=== PATIENT | male | born 1945 | race Caucasian/White ===

== ENCOUNTER 2017-01-10 12:27 | Emergency (ER) | payer MEDICARE, MEDICAID ==
[~2017-01-10] VITALS: Ht 175.3 cm; Wt 75.0 kg
[~2017-01-10 12:27] MED LIST: ALBU1AER INH; ALL220TA PO; ASPI325T PO; BENA40TA OR; PRED5TAB PO; SIMV10TA OR; SPIRCAP INH; SYMB160A INH; VITA-13 PO
[2017-01-10 12:35] VITALS: BP 159/94; PULSE 122; RESP 22; TEMP 98.7; O2SAT 95
[2017-01-10] MEDS ORDERED: SODIUM CHLORIDE 0.9% FLUSH 10 ML FLUSH IV FLUSH PRN (13:15)
[2017-01-10] MEDS ORDERED: methylPREDNISolone SOD SUCC 125 MG/2 ML VIAL IVP ONE (13:15)
[2017-01-10] MEDS ORDERED: diphenhydrAMINE HCL 50 MG/ML VIAL IVP ONE (13:15)
[2017-01-10] MEDS ORDERED: FAMOTIDINE 20 MG/2 ML VIAL IV PUSH ONE (13:15)
[2017-01-10] MEDS: RESP: ALBUTEROL 2.5 MG/IPRATROPIUM 0.5 MG NEB (SCH) INH ×2 (13:21→14:56)
[2017-01-10 13:25] VITALS: O2SAT 97
[2017-01-10] MEDS ORDERED: XOLA150S SQ (13:31)
[2017-01-10] MEDS ORDERED: ASPI325T PO (13:31)
[2017-01-10] MEDS ORDERED: ALBU1.25 NEB (13:31)
[2017-01-10] MEDS ORDERED: MONT10TA2 PO (13:31)
[2017-01-10] MEDS ORDERED: SPIRCAP INH (13:31)
[2017-01-10] MEDS ORDERED: SIMV10TA PO (13:31)
[2017-01-10] MEDS ORDERED: SYMB80AE INH (13:31)
[2017-01-10] MEDS ORDERED: BENA40TA PO (13:31)
[2017-01-10] MEDS ORDERED: VITA100036 PO (13:31)
[2017-01-10 13:33] LABS: AUTOMATED NEUTROPHIL # 5.1 TH/MM3 (1.8-7.7); BASOPHIL % 0.4 % (0.0-2.0); EOSINOPHIL # 0.1 TH/MM3 (0-0.4); EOSINOPHIL % 1.9 % (0.0-4.0); HEMATOCRIT 44.9 % (39.0-51.0); HEMO FLAGS DIFF FINAL; LYMPH % 23.9 % (9.0-44.0); LYMPHOCYTE # 1.9 TH/MM3 (1.0-4.8); MEAN CELL VOLUME 87.6 FL (80.0-100.0); MEAN CORPUSCULAR HEMOGLOBIN 29.5 PG (27.0-34.0); MEAN CORPUSCULAR HGB CONC 33.6 % (32.0-36.0); MONO % 10.2 % (0.0-8.0); NEUT % 63.6 % (16.0-70.0); PLATELET COUNT 218 TH/MM3 (150-450); RED BLOOD COUNT 5.12 MIL/MM3 (4.50-5.90); RED CELL DISTRIBUTION WIDTH 14.3 % (11.6-17.2); WHITE BLOOD COUNT 7.9 TH/MM3 (4.0-11.0)
--- NOTE | 2017-01-10 13:34 | PD ---
HPI Chief Complaint: shortness of breath Time Seen by Provider: 13:10 Travel History International Travel<30 days: No Contact w/Intl Traveler<30days: No Traveled to known affect area: No History of Present Illness HPI 71-year-old male with history of COPD, previous TIA, presents to the ER today because he states that he was given a new medication,Xolair, which she started on Wednesday, felt better for the past few days but then started having worsening in shortness of breath, chest tightness, coughing, headaches. He states that he thinks he is having a reaction to the medication. He states his first time he has been giving the medication. He denies any fevers, vomiting, abdominal pains, or other symptoms. Modifying Factors: None Associated Signs & Symptoms: Increased shortness of breath, chest discomfort, headaches Risk Factors: Recent new medication PFSH Past Medical History Cancer: No Diabetes: No Hepatitis: No Hiatal Hernia: No Thyroid Disease: No Social History Tobacco Use: No Allergies-Medications (Allergen,Severity, Reaction): Coded Allergies: acetaminophen (Unverified Allergy, Intermediate, Itching, 01/10/17) hydrocodone (Unverified Allergy, Intermediate, Itching, 01/10/17) oxycodone (Verified Allergy, Unknown, ITCHING, 01/10/17) Reported Meds & Prescriptions Reported Meds & Active Scripts Active Reported Vitamin D3 (Cholecalciferol) 1,000 Unit Cap 1,000 Units PO DAILY Aspirin 325 Mg Tab 325 Mg PO DAILY Benazepril (Benazepril HCl) 40 Mg Tab 40 Mg PO DAILY Simvastatin 10 Mg Tab 10 Mg PO DAILY Singulair (Montelukast Sodium) 10 Mg Tab 10 Mg PO HS Albuterol Neb (Albuterol Sulfate) 1.25 Mg/3 Ml Neb 1.25 Mg NEB Q4HR NEB PRN Symbicort Inh (Budesonide/Formoterol Fumarate) 80-4.5 Mcg/Act Aero 1 Puff INH Q12HR Xolair Inj (Omalizumab) 150 Mg Vial 150 Mg SQ Q28D Spiriva Handihaler (Tiotropium Inh) 18 Mcg Cap 18 Mcg INH DAILY 1 capsule = 18 mcg Review of Systems Except as stated in HPI: all other systems reviewed are Neg Physical Exam Narrative GENERAL: Well-developed elderly white male patient currently and moderate distress. Appears anxious. Awake and oriented 3. SKIN: Focused skin assessment warm/dry. HEAD: Atraumatic. Normocephalic. EYES: Pupils equal and round. No scleral icterus. No injection or drainage. ENT: No nasal bleeding or discharge. Mucous membranes pink and moist. NECK: Trachea midline. Positive JVD. CARDIOVASCULAR: Regular rate and rhythm. No murmur appreciated. RESPIRATORY: No accessory muscle use. Decreased breath sounds to auscultation throughout with mild wheezing intermittently. Breath sounds equal bilaterally. Right basilar crackles. GASTROINTESTINAL: Abdomen soft, non-tender, nondistended. Hepatic and splenic margins not palpable. MUSCULOSKELETAL: No obvious deformities. No clubbing. No cyanosis. No edema. NEUROLOGICAL: Awake and alert. No obvious cranial nerve deficits. Motor grossly within normal limits. Normal speech. PSYCHIATRIC: Appropriate mood and affect; insight and judgment normal. Data Data Last Documented VS Vital Signs Date Time Temp Pulse Resp B/P (MAP) Pulse Ox O2 Delivery O2 Flow Rate FiO2 01/10/17 14:02 97.7 109 24 157/86 (109) 93 Room Air 01/10/17 13:25 21 Orders Orders Complete Blood Count With Diff (01/10/17 13:10) Comprehensive Metabolic Panel (01/10/17 13:10) Ecg Monitoring (01/10/17 13:10) Iv Access Insert/Monitor (01/10/17 13:10) Oximetry (01/10/17 13:10) Diphenhydramine Inj (Benadryl Inj) (01/10/17 13:15) Methylprednisolone So Succ Inj (Solumedr (01/10/17 13:15) Famotidine Inj (Pepcid Inj) (01/10/17 13:15) Albuterol-Ipratropium Neb (Duoneb Neb) (01/10/17 13:15) Sodium Chloride 0.9% Flush (Ns Flush) (01/10/17 13:15) B-Type Natriuretic Peptide (01/10/17 13:59) Chest, Single Ap (01/10/17 13:59) Albuterol-Ipratropium Neb (Duoneb Neb) (01/10/17 15:00) Electrocardiogram (01/10/17 12:43) Labs Laboratory Tests Test 01/10/17 12:55 White Blood Count 7.9 TH/MM3 Red Blood Count 5.12 MIL/MM3 Hemoglobin 15.1 GM/DL Hematocrit 44.9 % Mean Corpuscular Volume 87.6 FL Mean Corpuscular Hemoglobin 29.5 PG Mean Corpuscular Hemoglobin Concent 33.6 % Red Cell Distribution Width 14.3 % Platelet Count 218 TH/MM3 Mean Platelet Volume 7.0 FL Neutrophils (%) (Auto) 63.6 % Lymphocytes (%) (Auto) 23.9 % Monocytes (%) (Auto) 10.2 % Eosinophils (%) (Auto) 1.9 % Basophils (%) (Auto) 0.4 % Neutrophils # (Auto) 5.1 TH/MM3 Lymphocytes # (Auto) 1.9 TH/MM3 Monocytes # (Auto) 0.8 TH/MM3 Eosinophils # (Auto) 0.1 TH/MM3 Basophils # (Auto) 0.0 TH/MM3 CBC Comment DIFF FINAL Differential Comment Blood Urea Nitrogen 15 MG/DL Creatinine 1.00 MG/DL Random Glucose 99 MG/DL Total Protein 7.5 GM/DL Albumin 3.8 GM/DL Calcium Level 9.2 MG/DL Alkaline Phosphatase 54 U/L Aspartate Amino Transf (AST/SGOT) 18 U/L Alanine Aminotransferase (ALT/SGPT) 24 U/L Total Bilirubin 0.5 MG/DL Sodium Level 138 MEQ/L Potassium Level 3.6 MEQ/L Chloride Level 103 MEQ/L Carbon Dioxide Level 25.9 MEQ/L Anion Gap 9 MEQ/L Estimat Glomerular Filtration Rate 73 ML/MIN B-Type Natriuretic Peptide 8 PG/ML MDM Medical Decision Making Medical Screen Exam Complete: Yes Emergency Medical Condition: Yes Medical Record Reviewed: Yes Interpretation(s) Laboratory Tests Test 01/10/17 12:55 Monocytes (%) (Auto) 10.2 % (0.0-8.0) Estimat Glomerular Filtration Rate 73 ML/MIN (>89) Differential Diagnosis Shortness of breath, anxiety, chest discomfort : worsening COPD versus pneumonia versus CHF versus allergic reaction versus medication side effect Narrative Course Chest x-ray did not show any signs of acute pulmonary processes. He had normal BNP and lab work. He was given Solu-Medrol, nebulizers, Benadryl in the ER. He did not have any signs of obvious angioedema on exam. On reevaluation at 3: 00, patient was still having some wheezing although he reports feeling better with the treatment. Another set of DuoNeb's were given. On a additional reevaluation at 3:46 PM, he is feeling much better and states that he wants to go home. At this point, I suspect that he may have an underlying COPD exacerbation rather than a reaction to the new medication. However, patient has an EpiPen at home as precaution because of possible reactions with the new medication. He is not supposed to get the new medication until another month. At this point, he appears to be doing well my plan would be to release him with close follow-up to primary care doctor. We will give him further treatment for COPD exacerbation. Return for any worsening in symptoms as needed. The plan has been discussed with him and he states understanding. In addition, have talked him regarding when to use the EpiPen which he should care with him at all times. Diagnosis Primary Impression: COPD exacerbation Med/Other Pt SpecificInfo: Prescription(s) given Scripts Epinephrine Inj (Epipen 2-Willem Inj) 0.3 Mg/0.3 Ml Pfpen 0.3 MG IM ONCE Y for ALLERGIC REACTION, #1 PACK 0 Refills Prov: Rafy Vásquez MD 01/10/17 Albuterol 6.7 GM Inh (Proventil Hfa 6.7 GM Inh) 90 Mcg/Act Aer 2 PUFF INH Q4-6H Y for SHORTNESS OF BREATH, #1 INHALER 0 Refills Prov: Rafy Vásquez MD 01/10/17 Methylprednisolone Dosepak (Medrol Dosepak) 4 Mg Dspk 4 MG PO DIRECTED, #1 DSPK 0 Refills Per Pharmacist direction Prov: Rafy Vásquez MD 01/10/17 Disposition: 01 DISCHARGE HOME Condition: Stable Rafy Vásquez MD Jan 10, 2017 13:34
[2017-01-10 13:48] LABS: CHLORIDE 103 MEQ/L (98-107); POTASSIUM 3.6 MEQ/L (3.5-5.1); SODIUM (NA) 138 MEQ/L (136-145)
[2017-01-10 13:52] LABS: ANION GAP 9 MEQ/L (5-15); BICARBONATE 25.9 MEQ/L (21.0-32.0); BLOOD UREA NITROGEN 15 MG/DL (7-18)
[2017-01-10 13:55] LABS: ALT (GPT) 24 U/L (12-78); AST (GOT) 18 U/L (15-37); GLOMERULAR FILTRATION RATE 73 ML/MIN (>89)
[2017-01-10 13:57] LABS: ALKALINE PHOSPHATASE 54 U/L (45-117); TOTAL BILIRUBIN ADULT 0.5 MG/DL (0.2-1.0)
[2017-01-10 14:02] VITALS: BP 157/86; PULSE 109; RESP 24; TEMP 97.7; O2SAT 93
--- NOTE | 2017-01-10 14:37 | RADRPT ---
EXAM DATE/TIME: 01/10/2017 14:29 [facility] COMPARISON: No previous studies available for comparison. INDICATIONS : Short of breath. MEDICAL HISTORY : None. SURGICAL HISTORY : None. ENCOUNTER: Initial ACUITY: 1 day PAIN SCORE: 7/10 LOCATION: Bilateral chest FINDINGS: A single view of the chest demonstrates the lungs to be symmetrically aerated without evidence of mas s, infiltrate or effusion. The cardiomediastinal contours are unremarkable. Tracheal shift to the r ight. Osseous structures are intact. CONCLUSION: Tracheal shift to the right likely enlarged thyroid. No acute cardiopulmonary disease. Nayan Hopkins MD on January 10, 2017 at 14:34 Board Certified Radiologist. This report was verified electronically.
[2017-01-10] MEDS ORDERED: MEDR4PAK PO (15:49)
[2017-01-10] MEDS ORDERED: EPIP0.3I IM (15:49)
[2017-01-10] MEDS ORDERED: ALBU6.7H INH (15:49)
[2017-01-10 15:50] VITALS: BP 157/75; PULSE 117; RESP 22; TEMP 97.8; O2SAT 95
--- NOTE | 2017-01-10 20:28 | EKG ---
Date Performed: 01/10/2017 Time Performed: 12:43:52 PTAGE: 71 years EKG: SINUS TACHYCARDIA ABNORMAL RHYTHM ECG NO PREVIOUS TRACING DOCTOR: Jagdish Gonzales Interpretating Date/Time 01/10/2017 20:26:50
== END 2017-01-10 16:03 | disposition home or self-care (01) ==
LOC: PHED 12:27
DX: J44.1 Chronic obstructive pulmonary disease with (acute) exacerbation (principal); Z86.73 Personal history of transient ischemic attack (TIA), and cerebral infarction without residual deficits
CPT/HCPCS: 71010; 80053; 83880; 85025; 93005; 94640; 94664; 96374; 96375; 99285; J1200; J2930

== ENCOUNTER 2017-04-14 11:23 | Inpatient (IN) | payer MEDICARE, MEDICAID ==
[2017-04-14] VITALS (9 sets, daily range): BP systolic 116–163; BP diastolic 76–100; PULSE 82–240; RESP 16–20; TEMP 96.3–97.9; O2SAT 94–97
[~2017-04-14 11:23] MED LIST changes: +ALBU1.25 NEB; -ALBU1AER INH; +ALBU6.7H INH; -ALL220TA PO; +ASPI-183 PO; -ASPI325T PO; -BENA40TA OR; +BENA40TA PO; +CHOL10008 PO; +EPIP0.3I IM; +MEDR4PAK PO; +MONT10TA2 PO; -PRED5TAB PO; -SIMV10TA OR; +SIMV10TA PO; -SYMB160A INH; +SYMB80AE INH; -VITA-13 PO; +XOLA150S SQ
[2017-04-14] MEDS ORDERED: ADENOSINE IV SOLN 3 MG/ML 2 ML VIAL ONE (11:35)
--- NOTE | 2017-04-14 11:59 | PD ---
HPI Chief Complaint: Cardiac Complaint Time Seen by Provider: 11:51 Travel History International Travel<30 days: No Contact w/Intl Traveler<30days: No History of Present Illness HPI 71yo M with PMH of COPD, PE on eliquis presents to the ED because his heart rate was in the 250s. Said he checks his heart rate every day. Pt was in SVT in the 250s with narrow regular complexes. Has a remote history of WPW syndrome. Pt was just discharged from [facility] last Wednesday because he was having trouble swallowing. Pt said he cough when he was drinking today and thinks he may have aspirated. Pt has sob but that is constant and not new. Has mild midsternal chest pain as well. Nonradiating. Denies any fever, nausea, vomiting, abdominal pain, focal weakness or numbness. Said he saw gunsmith apprentice Dr. Denny once. PFSH Past Medical History Hx Anticoagulant Therapy: Yes (ASA) Asthma: Yes Cancer: No Cardiovascular Problems: Yes (WPW SYSD.) High Cholesterol: Yes COPD: Yes Diabetes: No Diminished Hearing: No Hepatitis: No Hiatal Hernia: No Hypertension: Yes Respiratory: Yes (EMPHYSEMA) Immunizations Current: Yes Thyroid Disease: No Past Surgical History Other Surgery: Yes (SPINE) Social History Alcohol Use: Yes (2 WEEK) Tobacco Use: No Substance Use: No Allergies-Medications (Allergen,Severity, Reaction): Coded Allergies: acetaminophen (Unverified Allergy, Intermediate, Itching, 01/10/17) hydrocodone (Unverified Allergy, Intermediate, Itching, 01/10/17) oxycodone (Verified Allergy, Unknown, ITCHING, 01/10/17) Reported Meds & Prescriptions Reported Meds & Active Scripts Active Epipen 2-Willem Inj (Epinephrine) 0.3 Mg/0.3 Ml Pfpen 0.3 Mg IM ONCE PRN Proventil Hfa 6.7 GM Inh (Albuterol Sulfate) 90 Mcg/Act Aer 2 Puff INH Q4-6H PRN Reported [place] (Hydrocodone-Acetaminophen) 5 Mg-325 Mg Tab 1 Tab PO Q4H PRN Eliquis (Apixaban) 5 Mg Tab 5 Mg PO BID Diphenhydramine (Diphenhydramine HCl) 25 Mg Cap 25 Mg PO ONCE Aspirin 81 Mg Chew 162 Mg CHEW DAILY Vitamin D3 (Cholecalciferol) 1,000 Unit Cap 1,000 Units PO DAILY Simvastatin 10 Mg Tab 10 Mg PO DAILY Albuterol Neb (Albuterol Sulfate) 1.25 Mg/3 Ml Neb 1.25 Mg NEB Q4HR NEB PRN Symbicort Inh (Budesonide/Formoterol Fumarate) 80-4.5 Mcg/Act Aero 1 Puff INH Q12HR Xolair Inj (Omalizumab) 150 Mg Vial 150 Mg SQ Q28D Spiriva Handihaler (Tiotropium Inh) 18 Mcg Cap 18 Mcg INH DAILY 1 capsule = 18 mcg Review of Systems Except as stated in HPI: all other systems reviewed are Neg Physical Exam Narrative GENERAL: 71yo M in moderate distress. SKIN: Focused skin assessment warm/dry. HEAD: Atraumatic. Normocephalic. EYES: Pupils equal and round. No scleral icterus. No injection or drainage. ENT: No nasal bleeding or discharge. Mucous membranes pink and moist. NECK: Trachea midline. No JVD. CARDIOVASCULAR: Regular rhythm in the 250s. Narrow complex. RESPIRATORY: No accessory muscle use. Clear to auscultation. Breath sounds equal bilaterally. GASTROINTESTINAL: Abdomen soft, NT/ND. No rebound tenderness or guarding. MUSCULOSKELETAL: No obvious deformities. No clubbing. No cyanosis. No edema. NEUROLOGICAL: Awake and alert. No obvious cranial nerve deficits. Motor grossly within normal limits. Normal speech. PSYCHIATRIC: Appropriate mood and affect; insight and judgment normal. Data Data Last Documented VS Vital Signs Date Time Temp Pulse Resp B/P (MAP) Pulse Ox O2 Delivery O2 Flow Rate FiO2 04/14/17 12:34 112 16 116/92 (100) 96 04/14/17 11:35 97.9 Orders Orders Adenosine Inj (Adenocard Inj) (04/14/17 11:35) Adenosine Inj (Adenocard Inj) (04/14/17 12:00) Complete Blood Count With Diff (04/14/17 11:51) Basic Metabolic Panel (Bmp) (04/14/17 11:51) Prothrombin Time / Inr (Pt) (04/14/17 11:51) Act Partial Throm Time (Ptt) (04/14/17 11:51) Chest, Single Ap (04/14/17 ) Troponin I (04/14/17 11:51) Sodium Chlor 0.9% 1000 Ml Inj (Ns 1000 M (04/14/17 12:00) Hepatic Functional Panel (04/14/17 11:51) Admit Order (Ed Use Only) (04/14/17 12:59) Labs Laboratory Tests Test 04/14/17 11:38 White Blood Count 10.7 TH/MM3 Red Blood Count 4.79 MIL/MM3 Hemoglobin 13.8 GM/DL Hematocrit 42.8 % Mean Corpuscular Volume 89.4 FL Mean Corpuscular Hemoglobin 28.8 PG Mean Corpuscular Hemoglobin Concent 32.3 % Red Cell Distribution Width 14.6 % Platelet Count 605 TH/MM3 Mean Platelet Volume 7.4 FL Neutrophils (%) (Auto) 66.5 % Lymphocytes (%) (Auto) 21.1 % Monocytes (%) (Auto) 8.9 % Eosinophils (%) (Auto) 2.1 % Basophils (%) (Auto) 1.4 % Neutrophils # (Auto) 7.3 TH/MM3 Lymphocytes # (Auto) 2.2 TH/MM3 Monocytes # (Auto) 0.9 TH/MM3 Eosinophils # (Auto) 0.2 TH/MM3 Basophils # (Auto) 0.1 TH/MM3 CBC Comment DIFF FINAL Differential Comment Prothrombin Time 11.6 SEC Prothromb Time International Ratio 1.0 RATIO Activated Partial Thromboplast Time 28.7 SEC Blood Urea Nitrogen 21 MG/DL Creatinine 1.10 MG/DL Random Glucose 117 MG/DL Total Protein 7.8 GM/DL Albumin 3.8 GM/DL Calcium Level 9.6 MG/DL Alkaline Phosphatase 189 U/L Aspartate Amino Transf (AST/SGOT) 30 U/L Alanine Aminotransferase (ALT/SGPT) 37 U/L Total Bilirubin 0.3 MG/DL Direct Bilirubin 0.1 MG/DL Sodium Level 139 MEQ/L Potassium Level 3.7 MEQ/L Chloride Level 104 MEQ/L Carbon Dioxide Level 23.2 MEQ/L Anion Gap 12 MEQ/L Estimat Glomerular Filtration Rate 66 ML/MIN Indirect Bilirubin 0.2 MG/DL Troponin I LESS THAN 0.02 NG/ML [facility] Medical Decision Making Medical Screen Exam Complete: Yes Emergency Medical Condition: Yes Interpretation(s) EKG: SVT 240. Narrow complex. Regular. Repeat EKG: Sinus tachycardia at 136bpm. Normal axis. PVC. Differential Diagnosis SVT vs. aflutter vs. dehydration Narrative Course 71yo M here with HR in the 240s. The rhythm was regular and QRS was narrow. Even if pt had history of WPW, given the narrow complex, felt that it would be orthodromic atrioventricular reciprocating tachycardia and can safely give adenosine. Pt was given adenosine 6mg IV and converted to sinus tachycardia in the 120s then 110s. Pt receiving NS IVF. Pt had mild midsternal chest pain so cardiac work up initiated. Labs reviewed, no leukocytosis. Platelet count is elevated at 605 which is new. BUN mildly elevated at 21. Alk phos is also elevated at 189. Pt has no abdominal pain now. Troponin negative. CXR negative. Discussed with Dr. Philippe and accepted to his service. Records have been requested from [facility] and pending. Routine cardiology consult placed for Dr. Denny. Pt reevaluated at bedside and HR is now to 113bpm after 1 liter of NS IVF. Pt said he still feels dehydrated and wants more IVF. 500cc NS IVF ordered. Discussed with Dr. Philippe and accepted to his service. Cardiology consult placed and pt was seen by Dr. Corona in the ED. Critical Care Narrative Aggregate critical care time was 40 minutes. Time to perform other separately billable procedures was not included in the critical care time. My time did not include minutes spent treating any other patients simultaneously or on activities that did not directly contribute to the patient's treatment. The services I provided to this patient were to treat and/or prevent clinically significant deterioration that could result in: cardiovascular collapse or . I provided critical care services requiring my management, as noted below: Chart data review, documentation time, medication orders and management, vital sign assessments/reviewing monitor data, ordering and reviewing lab tests, ordering and interpreting/reviewing x-rays and diagnostic studies, care of the patient and discussion of the patient with the admitting physicians. Diagnosis Primary Impression: SVT (supraventricular tachycardia) Admitting Information Admitting Physician Requests: Admit Karolina Macario DO Apr 14, 2017 11:59
[2017-04-14] MEDS ORDERED: ADENOSINE IV SOLN 3 MG/ML 2 ML VIAL IV PUSH ONE (12:00)
[2017-04-14] MEDS ORDERED: SODIUM CHLOR 0.9% 1000 ML INJ 1,000 ML IV ONE (12:00)
[2017-04-14 12:04] LABS: AUTOMATED NEUTROPHIL # 7.3 TH/MM3 (1.8-7.7); BASOPHIL # 0.1 TH/MM3 (0-0.2); BASOPHIL % 1.4 % (0.0-2.0); EOSINOPHIL # 0.2 TH/MM3 (0-0.4); EOSINOPHIL % 2.1 % (0.0-4.0); HEMATOCRIT 42.8 % (39.0-51.0); HEMO FLAGS DIFF FINAL; LYMPH % 21.1 % (9.0-44.0); LYMPHOCYTE # 2.2 TH/MM3 (1.0-4.8); MEAN CELL VOLUME 89.4 FL (80.0-100.0); MEAN CORPUSCULAR HEMOGLOBIN 28.8 PG (27.0-34.0); MEAN CORPUSCULAR HGB CONC 32.3 % (32.0-36.0); MONO % 8.9 % (0.0-8.0); NEUT % 66.5 % (16.0-70.0); PLATELET COUNT 605 TH/MM3 (150-450); RED BLOOD COUNT 4.79 MIL/MM3 (4.50-5.90); RED CELL DISTRIBUTION WIDTH 14.6 % (11.6-17.2); WHITE BLOOD COUNT 10.7 TH/MM3 (4.0-11.0)
[2017-04-14 12:13] LABS: CHLORIDE 104 MEQ/L (98-107); POTASSIUM 3.7 MEQ/L (3.5-5.1); SODIUM (NA) 139 MEQ/L (136-145)
[2017-04-14] MEDS ORDERED: DIPH25CA PO (12:14)
[2017-04-14] MEDS ORDERED: ASPI-516 CHEW (12:14)
[2017-04-14] MEDS ORDERED: NORC5TAB PO (12:14)
[2017-04-14] MEDS ORDERED: APIX5TAB PO (12:14)
[2017-04-14 12:17] LABS: ANION GAP 12 MEQ/L (5-15); APTT (PATIENT) 28.7 SEC (24.3-30.1); BICARBONATE 23.2 MEQ/L (21.0-32.0); BLOOD UREA NITROGEN 21 MG/DL (7-18); PROTHROMBIN TIME - PATIENT 11.6 SEC (9.8-11.6)
--- NOTE | 2017-04-14 12:19 | RADRPT ---
EXAM DATE/TIME: 04/14/2017 12:01 [facility] COMPARISON: CHEST SINGLE AP, January 10, 2017, 14:29. INDICATIONS : Chest pain and short of breath. MEDICAL HISTORY : Cardiovascular disease. Emphysema. Hypertension. asthma, copd, PE SURGICAL HISTORY : goiter surgery ENCOUNTER: Initial ACUITY: 1 day PAIN SCORE: 5/10 LOCATION: Bilateral chest FINDINGS: A single view of the chest demonstrates the lungs to be symmetrically aerated without evidence of mas s, infiltrate or effusion. The cardiomediastinal contours are unremarkable. Osseous structures are intact. CONCLUSION: Normal examination. 4 intact median sternotomy wires. Torey Rosas MD on April 14, 2017 at 12:17 Board Certified Radiologist. This report was verified electronically.
[2017-04-14 12:20] LABS: ALT (GPT) 37 U/L (12-78); AST (GOT) 30 U/L (15-37); GLOMERULAR FILTRATION RATE 66 ML/MIN (>89)
[2017-04-14 12:21] LABS: INDIRECT BILIRUBIN 0.2 MG/DL (0.0-0.8); TOTAL BILIRUBIN ADULT 0.3 MG/DL (0.2-1.0)
[2017-04-14 12:23] LABS: ALKALINE PHOSPHATASE 189 U/L (45-117)
[2017-04-14] MEDS ORDERED: SODIUM CHLORID 0.9% 500 ML INJ 500 ML IV ONE (13:30)
[2017-04-14] MEDS ORDERED: SODIUM CHLORIDE 0.9% FLUSH 10 ML FLUSH IV FLUSH PRN (14:00)
[2017-04-14] MEDS ORDERED: NALOXONE HCL 0.4 MG/ML AMP IV PUSH PRN (14:00)
[2017-04-14] MEDS ORDERED: DILTIAZEM-CD 120 MG CAP ER PO ONE (16:00)
[2017-04-14] MEDS: METOPROLOL TARTRATE 25 MG TAB PO SCH (18:18)
[2017-04-14] MEDS ORDERED: RESP: ALBUTEROL 1.25 MG/3 ML NEB (PRN) NEB (18:45)
[2017-04-14] MEDS ORDERED: ALBUTEROL SULFATE 90 MCG/ACT HFA 8 GM INHALER INH PRN (18:45)
--- NOTE | 2017-04-14 19:30 | MB ---
cc: ROSENDO SAWANT MD DATE OF CONSULTATION: 04/14/2017 REASON FOR CONSULTATION: SVT HISTORY OF PRESENT ILLNESS Mr. Kelley is a pleasant 71-year-old patient of my partner, Dr. Denny, who does have a history of WPW. The patient presented with shortness of breath and elevated heart rate that was over 200 beats per minute and narrow complex. He was given adenosine with return to normal sinus rhythm. Cardiology was subsequently consulted. The patient notes he is status post recent hospitalization at [facility] after having a large thyroid goiter removed. He has dysphagia and feels he is dehydrated. He does report some shortness of breath from his COPD as well. PAST MEDICAL HISTORY: Significant for: 1. WPW 2. COPD. 3. Pulmonary embolism. 4. Sepsis. 5. Tachycardia. ALLERGIES TYLENOL, HYDROCODONE, OXYCODONE. REPORTED OUTPATIENT MEDICATIONS 1. [place]. 2. Eliquis. 3. Benadryl. 4. Aspirin. 5. Vitamin D. 6. Simvastatin. 7. Symbicort. 8. Spiriva. 9. Xolair. REVIEW OF SYSTEMS: Except as mentioned in the HPI, all 12 systems are negative. FAMILY HISTORY Positive for CAD. SOCIAL HISTORY The patient does occasionally have alcohol and he is a former smoker. PHYSICAL EXAMINATION: On physical examination vital signs 110, 18, 124/80. General: He is a thin man who is in no apparent distress. Neck: Free from JVD. Lungs: A bit decreased and clear to auscultation. Cardiovascular: He has a normal S1-S2. No murmurs, rubs, or gallops appreciated. Abdomen: Soft. Extremities: Free from edema. LABORATORY VALUES: Significant for troponin of less than 0.02, his alk phos is 189 and creatinine is 1.10. Nuclear stress test from February of 2017 (from our office) was normal. Telemetry strip does show SVT at 225 beats per minute. There are some nonspecific ST-T wave changes. Subsequent 12-lead EKG shows sinus tachycardia with nonspecific EKG changes. IMPRESSION SVT - the patient certainly has what appears to be an accessory pathway, though I am not completely convinced it is WPW. Nonetheless he did respond nicely to the adenosine and is back to baseline. I do not believe any further intervention is required at this time from a cardiac perspective. Ultimately long-term, after he has recovered from his recent surgery and pulmonary embolism, EP study and ablation likely would prove quite beneficial to this gentleman as he has been having symptoms in excess of 20 years. He is otherwise asymptomatic and had a recent nuclear stress test. Thus, once he is otherwise medically stable, it is reasonable for him to be discharged home. I will be available on a p.r.n. basis. Dewayne Orlando/EVGENY /3:00 PM /7:13 PM
[2017-04-14] MEDS: SODIUM CHLORIDE 0.9% FLUSH 10 ML FLUSH IV FLUSH SCH (20:13)
[2017-04-14] MEDS: D5-NS + KCL 20 MEQ INJ 1,000 ML IV SCH (20:14)
[2017-04-14] MEDS: APIXABAN 5 MG TABLET PO SCH (20:14)
[2017-04-14] MEDS: ACETAMINOPHEN/HYDROcodone 325 MG/5 MG TAB PO PRN (20:16)
[2017-04-14] MEDS: BUDESONIDE-FORMOTEROL 80/4.5 MCG INHALER INH SCH (21:00)
--- NOTE | 2017-04-14 21:52 | MB ---
cc: LITZY MCLAUGHLIN MD DATE OF CONSULTATION 04/14/17 HISTORY OF PRESENT ILLNESS Mr. Kelley is a 71-year-old white male with remote history of WPW but narrow complex EKG. He presented with supraventricular tachycardia with heart rate of 250 beats per minute. He had palpitations but no chest pain. He had shortness of breath related to his COPD. He has no previous history of coronary artery disease but he has history of TIA. PAST MEDICAL HISTORY Positive for COPD, remote history of WPW, dyslipidemia, hypertension, TIA, history of spinal surgery. MEDICATIONS Medications include: 1. [place]. 2. Eliquis 5 milligrams twice a day. 3. Diphenhydramine. 4. Aspirin, baby aspirin. 5. Vitamin D3. 6. Simvastatin. 7. Albuterol. 8. Symbicort. 9. Xolair. 10. Spiriva. ALLERGIES TYLENOL, HYDROCODONE, OXYCODONE. SOCIAL HISTORY The patient does not smoke. He drinks alcohol infrequently. He is accompanied by his partner and caregiver. FAMILY HISTORY Negative for heart disease. REVIEW OF SYSTEMS Otherwise negative. PHYSICAL EXAMINATION VITAL SIGNS: Blood pressure 124/80, pulse 95 and regular. HEENT: Negative. 2+ carotid upstrokes. No bruits. LUNGS: Clear with decreased breath sounds. HEART: Regular with no murmur, gallop. ABDOMEN: Soft. No bruits. EXTREMITIES: Without edema, 1-2 distal pulses. NEUROLOGIC: Grossly nonfocal. There is anterior chest scar related to removal of large goiter. CARDIOLOGY STUDIES EKG was reviewed and showed ___ narrow complex tachycardia. Telemetry shows narrow complex tachycardia and subsequent mild sinus tachycardia. LABORATORY DATA Hemoglobin 13.8, potassium 3.7, creatinine 1.1. AST, ALT normal. Troponins less than 0.02. DIAGNOSIS 1. Narrow complex tachycardia. 2. COPD. 3. Remote history of WPW. 4. Hypertension. 5. Dyslipidemia. DISPOSITION Mr. Kelley presented with narrow complex tachycardia consistent with orthodromic reciprocating tachycardia. He was converted with IV adenosine. Recommend to start diltiazem 120 milligrams a day. He will be monitored on telemetry. He has no further arrhythmias, can be discharged home and I will schedule follow-up in our office after discharge. The was discussed with the patient and his partner and they understand the plan. MD CAROLINE Gandara /3:49 PM /9:35 PM
[2017-04-15 04:00] VITALS: BP 110/73; PULSE 91; RESP 20; TEMP 97.3; O2SAT 95
[2017-04-15] MEDS: METOPROLOL TARTRATE 25 MG TAB PO SCH ×2 (04:39)
[2017-04-15] MEDS: D5-NS + KCL 20 MEQ INJ 1,000 ML IV SCH (07:33)
[2017-04-15] MEDS: ACETAMINOPHEN/HYDROcodone 325 MG/5 MG TAB PO PRN (07:43)
[2017-04-15 08:00] VITALS: BP 143/80; PULSE 83; RESP 16; TEMP 97; O2SAT 95
[2017-04-15 08:02] LABS: CHLORIDE 108 MEQ/L (98-107); POTASSIUM 3.4 MEQ/L (3.5-5.1); SODIUM (NA) 141 MEQ/L (136-145)
[2017-04-15 08:19] VITALS: PULSE 87
[2017-04-15 08:22] LABS: ALKALINE PHOSPHATASE 156 U/L (45-117); ALT (GPT) 28 U/L (12-78); ANION GAP 8 MEQ/L (5-15); AST (GOT) 25 U/L (15-37); BICARBONATE 24.7 MEQ/L (21.0-32.0); BLOOD UREA NITROGEN 10 MG/DL (7-18); GLOMERULAR FILTRATION RATE 135 ML/MIN (>89); TOTAL BILIRUBIN ADULT 0.5 MG/DL (0.2-1.0)
[2017-04-15 08:43] VITALS: RESP 18
[2017-04-15] MEDS ORDERED: CHOLECALCIFEROL (VIT D3) 1000 UNIT TAB PO SCH (09:00)
[2017-04-15] MEDS ORDERED: TIOTROPIUM BROMIDE 18 MCG INH INH SCH (09:00)
[2017-04-15] MEDS ORDERED: DILTIAZEM-CD 120 MG CAP ER PO SCH (09:00)
[2017-04-15] MEDS ORDERED: PRAVASTATIN SOD 20 MG TAB PO SCH (09:00)
[2017-04-15] MEDS: BUDESONIDE-FORMOTEROL 80/4.5 MCG INHALER INH SCH (09:28)
[2017-04-15] MEDS: SODIUM CHLORIDE 0.9% FLUSH 10 ML FLUSH IV FLUSH SCH (09:28)
[2017-04-15] MEDS: APIXABAN 5 MG TABLET PO SCH (09:28)
--- NOTE | 2017-04-15 09:58 | HHI.HP ---
History of Present Illness Primary Care Physician Stephen Philippe, DO Admission Diagnosis SVT, chest pain Diagnoses: History of Present Illness pt had episode of tachacardia yeesterday with heart rate up above 2000 he came to ed and was in SVT he was converted to Nsr with adenosine and is now in sinus rhythm with heart rate of 92 Review of Systems Cardiovascular: COMPLAINS OF: Palpitations Gastrointestinal: COMPLAINS OF: Difficulty Swallowing Past Family Social History Allergies: Coded Allergies: acetaminophen (Unverified Allergy, Intermediate, Itching, 01/10/17) hydrocodone (Unverified Allergy, Intermediate, Itching, 01/10/17) oxycodone (Verified Allergy, Unknown, ITCHING, 01/10/17) Past Medical History goiter hpld dysphagia COPD Past Surgical History thyroidectomy Reported Medications Reported Meds & Active Scripts Active Epipen 2-Willem Inj (Epinephrine) 0.3 Mg/0.3 Ml Pfpen 0.3 Mg IM ONCE PRN Proventil Hfa 6.7 GM Inh (Albuterol Sulfate) 90 Mcg/Act Aer 2 Puff INH Q4-6H PRN Reported [place] (Hydrocodone-Acetaminophen) 5 Mg-325 Mg Tab 1 Tab PO Q4H PRN Eliquis (Apixaban) 5 Mg Tab 5 Mg PO BID Diphenhydramine (Diphenhydramine HCl) 25 Mg Cap 25 Mg PO ONCE Aspirin 81 Mg Chew 162 Mg CHEW DAILY Vitamin D3 (Cholecalciferol) 1,000 Unit Cap 1,000 Units PO DAILY Simvastatin 10 Mg Tab 10 Mg PO DAILY Albuterol Neb (Albuterol Sulfate) 1.25 Mg/3 Ml Neb 1.25 Mg NEB Q4HR NEB PRN Symbicort Inh (Budesonide/Formoterol Fumarate) 80-4.5 Mcg/Act Aero 1 Puff INH Q12HR Xolair Inj (Omalizumab) 150 Mg Vial 150 Mg SQ Q28D Spiriva Handihaler (Tiotropium Inh) 18 Mcg Cap 18 Mcg INH DAILY 1 capsule = 18 mcg Active Ordered Medications Inpatient Medications Acetaminophen/ Hydrocodone Bitart ([place] 5-325 Mg) 1 tab Q4H PRN PO PAIN Last administered on 04/15/17 07:43; Start 04/14/17 at 18:45 Adenosine (Adenocard Inj) 6 mg ONCE ONCE IV PUSH Last administered on 12:24; Start 04/14/17 at 12:00; Stop 04/14/17 at 12:01; Status DC Albuterol Sulfate (Albuterol Neb) 1.25 mg Q4HR NEB PRN NEB SHORTNESS OF BREATH Last administered on 04/14/17 20:51; Start 04/14/17 at 18:45 Albuterol Sulfate (Proair Hfa Inh) 2 puff BID PRN INH SHORTNESS OF BREATH Last administered on 04/15/17 04:39; Start 04/14/17 at 18:45 Apixaban (Eliquis) 5 mg BID PO Last administered on 04/14/17 20:14; Start at 21:00 Budesonide/ Formoterol Fumarate (Symbicort 80-4.5 Mcg Inh) 1 puff Q12HR INH ; Start 04/14/17 at 21:00 Cholecalciferol (Vitamin D3) 1,000 units DAILY PO ; Start 04/15/17 at 09:00 Diltiazem HCl (Cardizem Cd) 120 mg ONCE ONCE PO ; Start 04/14/17 at 16:00; Stop 04/14/17 at 16:09; Status DC Metoprolol Tartrate (Lopressor) 25 mg Q6HR PO Last administered on 04/15/17 04:39; Start 04/14/17 at 18:00 Naloxone HCl (Narcan Inj) 0.4 mg UNSCH PRN IV PUSH SEE LABEL COMMENTS; Start 04/14/17 at 14:00 Patient Own Medication PT OWN MED: OMALIZU... Q28D SQ ; Start 04/15/17 at 18:00 ; Status Future Hold Potassium Chloride/Dextrose/ Sod Cl 1,000 ml @ 84 mls/hr [id number] IV Last administered on 04/15/17 07:33; Start 04/14/17 at 18:45 Pravastatin Sodium (Pravachol) 20 mg DAILY PO ; Start 04/15/17 at 09:00 Sodium Chloride (NS Flush) 2 ml BID IV FLUSH Last administered on 04/14/17 20 :13; Start 04/14/17 at 21:00 Tiotropium [place] (Spiriva Inh) 18 mcg DAILY INH ; Start 04/15/17 at 09:00 Family History father with CVA mother diedof heart disease Social History non smoker non drinker Physical Exam Vital Signs Vital Signs Date Time Temp Pulse Resp B/P (MAP) Pulse Ox O2 Delivery O2 Flow Rate FiO2 04/15/17 08:00 97.0 83 16 143/80 (101) 95 04/15/17 04:00 97.3 91 20 110/73 (85) 95 04/14/17 23:40 96.3 82 16 126/79 (95) 97 04/14/17 21:16 20 04/14/17 20:00 90 04/14/17 20:00 96.4 87 20 134/90 (105) 96 04/14/17 19:54 96.4 87 20 134/90 (105) 96 04/14/17 16:20 115 04/14/17 16:15 96.9 114 20 116/76 (89) 94 04/14/17 14:58 04/14/17 13:22 110 18 124/80 (95) 94 04/14/17 12:34 112 16 116/92 (100) 96 04/14/17 11:40 120 18 148/80 (102) 96 04/14/17 11:35 97.9 240 18 163/100 (121) 94 04/14/17 11:35 97.9 240 18 163/100 (121) 04/14/17 11:35 240 94 Physical Exam GENERAL: This is a well-nourished, well-developed patient, in no apparent distress. SKIN: No rashes, ecchymoses or lesions. Cool and dry. HEAD: Atraumatic. Normocephalic. No temporal or scalp tenderness. EYES: Pupils equal round and reactive. Extraocular motions intact. No scleral icterus. No injection or drainage. ENT: Nose without bleeding, purulent drainage or septal hematoma. Throat without erythema, tonsillar hypertrophy or exudate. Uvula midline. Airway patent. NECK: Trachea midline. No JVD or lymphadenopathy. Supple, nontender, no meningeal signs. CARDIOVASCULAR: Regular rate and rhythm without murmurs, gallops, or rubs.well healed sternotomy from prior goiter resection RESPIRATORY: Clear to auscultation. Breath sounds equal bilaterally. No wheezes , rales, or rhonchi. GASTROINTESTINAL: Abdomen soft, non-tender, nondistended. No hepato-splenomegaly , or palpable masses. No guarding. MUSCULOSKELETAL: Extremities without clubbing, cyanosis, or edema. No joint tenderness, effusion, or edema noted. No calf tenderness. Negative Homans sign bilaterally. NEUROLOGICAL: Awake and alert. Cranial nerves II through XII intact. Motor and sensory grossly within normal limits. Five out of 5 muscle strength in all muscle groups. Normal speech. Laboratory Laboratory Tests Test 04/14/17 11:38 04/14/17 17:13 04/14/17 23:20 04/15/17 06:35 White Blood Count 10.7 Red Blood Count 4.79 Hemoglobin 13.8 Hematocrit 42.8 Mean Corpuscular Volume 89.4 Mean Corpuscular Hemoglobin 28.8 Mean Corpuscular Hemoglobin Concent 32.3 Red Cell Distribution Width 14.6 Platelet Count 605 Mean Platelet Volume 7.4 Neutrophils (%) (Auto) 66.5 Lymphocytes (%) (Auto) 21.1 Monocytes (%) (Auto) 8.9 Eosinophils (%) (Auto) 2.1 Basophils (%) (Auto) 1.4 Neutrophils # (Auto) 7.3 Lymphocytes # (Auto) 2.2 Monocytes # (Auto) 0.9 Eosinophils # (Auto) 0.2 Basophils # (Auto) 0.1 CBC Comment DIFF FINAL Differential Comment Prothrombin Time 11.6 Prothromb Time International Ratio 1.0 Activated Partial Thromboplast Time 28.7 Blood Urea Nitrogen 21 10 Creatinine 1.10 0.59 Random Glucose 117 98 Total Protein 7.8 6.4 Albumin 3.8 3.1 Calcium Level 9.6 8.6 Alkaline Phosphatase 189 156 Aspartate Amino Transf (AST/SGOT) 30 25 Alanine Aminotransferase (ALT/SGPT) 37 28 Total Bilirubin 0.3 0.5 Direct Bilirubin 0.1 Sodium Level 139 141 Potassium Level 3.7 3.4 Chloride Level 104 108 Carbon Dioxide Level 23.2 24.7 Anion Gap 12 8 Estimat Glomerular Filtration Rate 66 135 Indirect Bilirubin 0.2 Troponin I LESS THAN 0.02 0.02 0.02 Result Diagram: 04/14/17 1138 04/15/17 0635 Imaging Last Impressions Chest X-Ray 04/14/17 0000 Signed Impressions: Service Date/Time: Friday, April 14, 2017 12:01 - CONCLUSION: Normal examination. 4 intact median sternotomy wires. Torey Rosas MD Course heart rate now stable Caprini VTE Risk Assessment Caprini VTE Risk Assessment: No/Low Risk (score <= 1) Caprini Risk Assessment Model Point Value = 1 Point Value = 2 Point Value = 3 Point Value = 5 Age 41-60 Minor surgery BMI > 25 kg/m2 Swollen legs Varicose veins or History of unexplained or recurrent spontaneous Oral contraceptives or hormone replacement Sepsis (< 1 month) Serious lung disease, including pneumonia (< 1 month) Abnormal pulmonary function Acute myocardial infarction Congestive heart failure (< 1 month) History of inflammatory bowel disease Medical patient at bed rest Age 61-74 Arthroscopic surgery Major open surgery (> 45 min) Laparoscopic surgery (> 45 min) Malignancy Confined to bed (> 72 hours) Immobilizing plaster cast Central venous access Age >= 75 History of VTE Family history of VTE Factor V Leiden Prothrombin [id number] Lupus anticoagulant Anticardiolipin antibodies Elevated serum homocysteine Heparin-induced thrombocytopenia Other congenital or acquired thrombophilia Stroke (< 1 month) Elective arthroplasty Hip, pelvis, or leg fracture Acute spinal cord injury (< 1 month) Prophylaxis Regimen Total Risk Factor Score Risk Level Prophylaxis Regimen 0-1 Low Early ambulation 2 Moderate Order ONE of the following: *Sequential Compression Device (SCD) *Heparin 5000 units SQ BID 3-4 Higher Order ONE of the following medications: *Heparin 5000 units SQ TID *Enoxaparin/Lovenox 40 mg SQ daily (WT < 150 kg, CrCl > 30 mL/min) *Enoxaparin/Lovenox 30 mg SQ daily (WT < 150 kg, CrCl > 10-29 mL/min) *Enoxaparin/Lovenox 30 mg SQ BID (WT < 150 kg, CrCl > 30 mL/min) AND/OR *Sequential Compression Device (SCD) 5 or more Highest Order ONE of the following medications: *Heparin 5000 units SQ TID (Preferred with Epidurals) *Enoxaparin/Lovenox 40 mg SQ daily (WT < 150 kg, CrCl > 30 mL/min) *Enoxaparin/Lovenox 30 mg SQ daily (WT < 150 kg, CrCl > 10-29 mL/min) *Enoxaparin/Lovenox 30 mg SQ BID (WT < 150 kg, CrCl > 30 mL/min) AND *Sequential Compression Device (SCD) Assessment and Plan Assessment and Plan svt now converted start [facility] will fu with gi as an op Discussed Condition With patient Discharge Planning home Stephen Philippe DO Apr 15, 2017 09:58
--- NOTE | 2017-04-15 10:29 | EKG ---
Date Performed: 04/14/2017 Time Performed: 22:37:44 PTAGE: 71 years EKG: Sinus rhythm NORMAL ECG PREVIOUS TRACING : 04/14/2017 17.10 DOCTOR: Filippo Odell Interpretating Date/Time 04/15/2017 10:27:10
--- NOTE | 2017-04-15 10:38 | EKG ---
Date Performed: 04/14/2017 Time Performed: 17:10:07 PTAGE: 71 years EKG: SINUS TACHYCARDIA ABNORMAL RHYTHM ECG PREVIOUS TRACING : 04/14/2017 11.41 DOCTOR: Filippo Odell Interpretating Date/Time 04/15/2017 10:37:40
--- NOTE | 2017-04-15 10:49 | EKG ---
Date Performed: 04/14/2017 Time Performed: 11:41:56 PTAGE: 71 years EKG: SINUS TACHYCARDIA WITH OCCASIONAL VENTRICULAR PREMATURE COMPLEXES MODERATE ST DEPRESSION AB NORMAL ECG PREVIOUS TRACING : 01/10/2017 12.43 DOCTOR: Filippo Odell Interpretating Date/Time 04/15/2017 10:47:51
[2017-04-15] MEDS ORDERED: OMALIZUMAB SQ SCH (18:00)
== END 2017-04-15 10:58 | disposition home or self-care (01) | DRG 310 ==
LOC: PHED 11:23 → PHEDA 12:59 → PH3B 14:55
PROVIDERS: ADMIT Family Medicine; ATTEND Family Medicine
DX: I47.1 Supraventricular tachycardia (principal); J43.9 Emphysema, unspecified; I10 Essential (primary) hypertension; E86.0 Dehydration; R13.10 Dysphagia, unspecified; E78.5 Hyperlipidemia, unspecified; E89.0 Postprocedural hypothyroidism; Z79.01 Long term (current) use of anticoagulants; Z82.3 Family history of stroke; Z82.49 Family history of ischemic heart disease and other diseases of the circulatory system; Z86.711 Personal history of pulmonary embolism; Z86.73 Personal history of transient ischemic attack (TIA), and cerebral infarction without residual deficits; Z87.891 Personal history of nicotine dependence; Z88.5 Allergy status to narcotic agent; Z88.6 Allergy status to analgesic agent
CPT/HCPCS: 71010; 80048; 80053; 80076; 84484; 85025; 85610; 85730; 93005; 94664; 96361; 96374; J0153; J3480; J7030; J7040; J7613